=== PATIENT | male | born 1990 | race Caucasian/White ===

== ENCOUNTER 2017-03-12 12:00 | Emergency (ER) | payer MEDICARE | END 2017-03-12 14:00 | disposition home or self-care (01) | LOC: ER1 12:00 | DX: S61.212A Laceration without foreign body of right middle finger without damage to nail, initial encounter (principal); Z88.0 Allergy status to penicillin; W22.09XA Striking against other stationary object, initial encounter; Y93.89 Activity, other specified; Y92.009 Unspecified place in unspecified non-institutional (private) residence as the place of occurrence of the external cause | CPT/HCPCS: 12001; 29130; 99283 ==

== ENCOUNTER 2022-02-18 15:43 | Emergency (ER) | payer OTHER ==
[~2022-02-18 15:43] MED LIST: FLEXERIL 10 MG10 MG PO; IBUPROFEN600 MG PO; NAPROSYN500 MG PO; PHENERGAN 25 MG25 M1 PO
[2022-02-18] MEDS ORDERED: MEDROL DOSEPAK 24 MG PO (21:04)
[2022-02-18] MEDS ORDERED: Voltaren Gel 1% TOP (21:04)
[2022-02-18] MEDS ORDERED: NORFLEX 100 MG100 MG PO (21:04)
== END 2022-02-18 21:18 | disposition home or self-care (01) ==
LOC: ER1 15:43
DX: M54.50 Low back pain, unspecified (principal); Z88.0 Allergy status to penicillin
CPT/HCPCS: 72100; 96372; 99283; J1100; J1885